=== PATIENT | male | born 1945 | race Caucasian/White ===

== ENCOUNTER 2017-03-30 09:59 | Emergency (ER) | payer MEDICAID, MEDICARE ==
[~2017-03-30] VITALS: Ht 172.7 cm; Wt 70.5 kg
[2017-03-30] MEDS ORDERED: TraMADol HCL 50 MG TABLET PO ONE (11:30)
[2017-03-30] MEDS ORDERED: CEPHALEXIN MONOHYDRATE 500 MG CAPSULE PO ONE (11:30)
[2017-03-30 12:50] VITALS: BP 118/87
== END 2017-03-30 13:31 | disposition home or self-care (01) ==
LOC: EDSEX 10:08 → EMS 10:08
DX: S80.811A Abrasion, right lower leg, initial encounter (principal); L03.115 Cellulitis of right lower limb; F17.210 Nicotine dependence, cigarettes, uncomplicated; E11.9 Type 2 diabetes mellitus without complications; I10 Essential (primary) hypertension; Z76.0 Encounter for issue of repeat prescription; X58.XXXA Exposure to other specified factors, initial encounter; Y93.89 Activity, other specified; Y92.89 Other specified places as the place of occurrence of the external cause; Y99.8 Other external cause status
CPT/HCPCS: 82962; 99283